=== PATIENT | female | born 1950 | race Caucasian/White ===

== ENCOUNTER → 2016-08-19 | Outpatient (CLI) | payer OTHER, BC ==
[~2016-08-19] MED LIST: ACETAMINOPHEN325 M1 PO; ALIGN4 MG PO; AMBEREN; CARBIDOPA-LEVO1 EAC3 PO; CIPROFLOXACIN500 M1 PO; CLONAZEPAM; CLONAZEPAM 1 MG1 M1 PO; CYMBALTA30 MG PO; CYMBALTA60 MG PO; EXELON1 EAC1 TD; FISHOIL; FLAGYL500 MG PO; HYDROCODONE-AP1 EAC6 PO; MIRAPEX0.5 MG PO; MULTIVITAMINS PO; NORVASC10 MG PO; OS-CAL 500+D C1 EACH; PRILOSEC 20 MG20 MG PO; PRILOSEC40 MG PO; SINEMET 25-1001 EAC1 PO; SYNTHROID75 MCG PO; TIROSINT75 MCG PO; VITAMIN D1000 UNI1 PO
== END ==
LOC: RAD 07:37
DX: Z12.31 Encounter for screening mammogram for malignant neoplasm of breast (principal)

== ENCOUNTER → 2017-08-31 | Outpatient (CLI) | payer OTHER, BC | LOC: RAD 01:31 | DX: Z12.31 Encounter for screening mammogram for malignant neoplasm of breast (principal) ==

== ENCOUNTER 2017-12-09 18:21 | Inpatient (IN) | payer OTHER, BC ==
[~2017-12-09] VITALS: Ht 165.1 cm; Wt 42.8 kg
--- NOTE | ~2017-12-09 | 2DMMODE ---
[facility] [place] [address] 2 D/M-MODE ECHOCARDIOGRAM Name: LALITA PORTILLO Room #: 460-P ADM IN ..#: [id number] Admission: 12/09/17 Attend Phys: Barrington Deluca MD Discharge: Date of : 52 Date of Service: 12/11/17 1123 Report #: [id number] THIS REPORT FOR: //name// APPROVED REPORT Study performed: 12/11/2017 08:25:42 EXAM: Comprehensive 2D, Doppler, and color-flow Echocardiogram Patient Location: Bedside Room #: [facility] Status: routine BSA: 1.40 HR: 77 bpm BP: 150/94 mmHg Rhythm: NSR Other Information Study Quality: Fair Risk Factors: Cardiac Risk Factors: HTN Indications Syncope 2D Dimensions RVDd: 34.25 mm IVSd: 10.33 (7-11mm) LVDd: 37.41 mm PWd: 11.41 (7-11mm) Ascending Ao: 27.13 (22-36mm) LVDs: 27.39 (25-40mm) Aortic Root: 31.37 mm IVC: 16.00 mm Volumes Left Atrial Volume (Systole) Single Plane 4CH: 14.39 mL Single Plane 2CH: 33.58 mL LA ESV Index: 19.80 mL/m2 Aortic Valve AoV Peak Eduard.: 1.30 m/s AO Peak Gr.: 6.78 mmHg LVOT Max P.79 mmHg LVOT Max V: 0.97 m/s Mitral Valve E/A Ratio: 1.1 [facility] [address] [place] [address] 2 D/M-MODE ECHOCARDIOGRAM Name: LALITA PORTILLO Room #: 460-P [facility]#: [id number] Admission: 12/09/17 Attend Phys: Barrington Deluca MD Discharge: Date of : 52 Date of Service: 12/11/17 1123 Report #: [id number] MV Decel. Time: 203.01 ms MV E Max Eduard.: 0.78 m/s MV A Eduard.: 0.71 m/s MV PHT: 58.87 ms IVRT: 110.73 ms Pulmonary Valve PV Peak Eduard.: 0.75 m/s PV Peak Gr.: 2.23 mmHg Pulmonary Vein P Vein S: 0.85 m/s P Vein A: 0.31 m/s P Vein D: 0.41 m/s P Vein A Dur.: 162.6 msec P Vein S/D Ratio: 2.07 Tricuspid Valve TR Peak Eduard.: 1.90 m/s RAP Estimate: 10.00 mmHg TR Peak Gr.: 14.46 mmHg PA Pressure: 25.00 mmHg Left Ventricle The left ventricle is normal size. There is normal left ventricular wall thickness. The left ventricular systolic function is normal. The left ventricular ejection fraction is within the normal range. LVEF is 55%. Right Ventricle The right ventricle is normal size. The right ventricular systolic function is normal. Atria The left atrium size is normal. Right atrium is mildly dilated. Aortic Valve The aortic valve is normal in structure. No aortic regurgitation is present. There is no aortic valvular stenosis. Mitral Valve The mitral valve is normal in structure. Trace mitral regurgitation. No evidence of mitral valve stenosis. Tricuspid Valve The tricuspid valve is normal in structure. Trace tricuspid regurgitation. Estimated PAP of 25 mmHg. Pulmonic Valve [facility] [address] [place] [address] 2 D/M-MODE ECHOCARDIOGRAM Name: LALITA PORTILLO Room #: 460-P [facility] IN ..#: [id number] Admission: 12/09/17 Attend Phys: Barrington Deluca MD Discharge: Date of : 52 Date of Service: 12/11/17 1123 Report #: [id number] Pulmonic valve is not well visualized. Trace pulmonic regurgitation. Great Vessels The aortic root is normal in size. The ascending aorta is normal in size. IVC is normal in size and collapses <50% with inspiration. Pericardium Small posterior pericardial effusion. <Conclusion> The left ventricle is normal size. LVEF is 55%. The right ventricle is normal size. Right atrium is mildly dilated. The aortic valve is normal in structure. Trace mitral regurgitation. Trace tricuspid regurgitation. Estimated PAP of 25 mmHg. The aortic root is normal in size. Small posterior pericardial effusion. <ELECTRONICALLY SIGNED> By: Denis Ndiaye MD, FACC 12/11/17 112 22 22 Denis Ndiaye MD, FACC /INF
--- NOTE | ~2017-12-09 | HC ---
[facility] [place] [address] CONSULTATION Name: LALITA PORTILLO Room #: 460-P [facility] IN M.R.#: [id number] Admission: 12/09/17 Attend Phys: Barrington Deluca MD Discharge: 12/15/17 Date of : 52 Report #: [id number] THIS REPORT FOR: //name// CC: [facility] physician/PCP Barrington Deluca DATE OF SERVICE: 12/11/2017 NEUROLOGY CONSULTATION HISTORY OF PRESENT ILLNESS: The patient is a 67-year-old female. The neurology service is asked to see in consultation for Parkinson's disease and dementia. Apparently, the patient came to the Emergency Room 2 days ago after having 2 syncopal episodes. The patient has a 9-year history of Parkinson's disease and is followed by Dr. Joshua at [facility]. Dr. Joshua is a movement disorder specialist. With one of these falls, she fractured her left humerus. She was seen at [facility] and was discharged. Apparently, the patient has a history of orthostatic hypotension, but Dr. Joshua had elected not to put the patient on any medication to keep her blood pressure up because of the concern for supine hypertension. According to the patient's , the patient spends quite a bit of time in a supine position and is not up and about. For the most part, the patient is doing well with her current medications. She takes Sinemet 4 times a day and is on a patch for her memory. She is pleased with Dr. Joshua, but sometimes, the visits are very brief and he has learned to take a list with him so he makes sure that he gets all his questions answered. PAST MEDICAL HISTORY: Parkinson's disease, orthostatic hypotension, dementia. PAST SURGICAL HISTORY: Unremarkable. MEDICATIONS: Multivitamin, memantine 10 mg b.i.d., trazodone 25 mg at bedtime, gabapentin 300 mg at bedtime, Sinemet 25/100 q.i.d., vitamin D 2000 units daily, folic acid daily, calcium with vitamin D at bedtime, magnesium 400 mg daily, hydrocodone p.r.n., Cymbalta 60 mg b.i.d., levothyroxine 75 mcg daily, Exelon patch 13.3 mg daily. ALLERGIES: PENICILLIN. PHYSICAL EXAMINATION: VITAL SIGNS: Temperature 36.7, pulse rate 76, respiratory rate 16, blood pressure 137/80, bedside pulse oximetry 98% on room air. NEUROLOGIC: Cranial nerves 2-12 are grossly intact. Motor exam demonstrates mild cogwheel rigidity in the right upper extremity. The left upper extremity could not be examined, the patient has a left humeral fracture. No tremor was seen. [place] [address] CONSULTATION Name: LALITA PORTILLO Room #: 460-P DIS IN M.R.#: [id number] Admission: 12/09/17 Attend Phys: Barrington Deluca MD Discharge: 12/15/17 Date of : 52 Report #: [id number] LABORATORY DATA: White blood cell count 7.9, hemoglobin 8.4, hematocrit 25, platelet count 155,000. Urinalysis: Urine pH 8.5, trace protein, trace ketones, trace blood, nitrite positive, 3+ leukocyte esterase. Chemistry: Sodium 144, potassium 4.1, chloride 133, carbon dioxide 27, BUN 19, creatinine 1.2, glucose 103. Liver functions normal. TSH 0.5. IMAGING STUDIES: CT scan of the head demonstrates mild cerebral volume loss. IMPRESSION: This patient has stable Parkinson's disease. She has dementia. This dementia could be compounded by the underlying urinary tract infection. At this point, I explained to the that she is seeing one of the very best movement disorder specialists that she can see and I would continue her medications as prescribed by Dr. Joshua. This includes Sinemet and the 2 medications for her memory, which are at their maximum dose. This includes the rivastigmine patch, which is at 13.3 mg and memantine, which is at 10 mg twice a day. Beyond this, I have no further recommendations other than therapy, which may be beneficial for the patient. I thank you for your kind referral of this patient. <ELECTRONICALLY SIGNED> By: Alix Diaz DO 12/23/17 1154 1135 [id number] Alix Diaz DO /nt
--- NOTE | ~2017-12-09 | EKG ---
[address] [address] ELECTROCARDIOGRAM REPORT Name: LI PORTILLOY Ekta Room #: 460-P ADM IN .R.#: [id number] Admission: 12/09/17 Attend Phys: Raudel Dempsey MD Discharge: Date of : 52 Report #: [id number] THIS REPORT FOR: //name// [facility] ED Test Date: 2017-12-09 Test Time: 18:30:26 Pat Name: LALITA PORTILLO Department: Room: [facility] Gender: F [employer] [place]: PARKER : 1950 Requested By: Les Braun Order Number: [id number] MD: Brian Ward Measurements Intervals [place] Rate: 72 P: 76 OR: 144 QRS: 18 QRSD: 105 T: 68 QT: 434 QTc: 476 Interpretive Statements Sinus rhythm No significant abnormality Compared to ECG 08/15/2014 12:47:29 No significant change was found Electronically Signed On 12-10-2017 8:06:54 CDT by Brian Ward [email or web address] <ELECTRONICALLY SIGNED> By: Brian Ward MD, [facility] 12/10/17 0806 29 29 Brian Ward MD, [facility] /EPI
[2017-12-09 18:22] VITALS: BP 141/78
[2017-12-09] MEDS ORDERED: NAMENDA 10 MG T10 MG PO (18:26)
[2017-12-09] MEDS ORDERED: TRAZODONE HCL50 MG PO (18:26)
[2017-12-09] MEDS ORDERED: NEURONTIN 300300 M1 PO (18:27)
[2017-12-09 19:51] LABS: BASOPHILS 0.2 % (0.0-2.0); EOSINOPHILS 0.1 % (0.0-3.0); HEMOGLOBIN 10.4 gm/dL (12.0-15.0); LYMPHOCYTES 7.1 % (24.0-44.0); MCH 30.9 pg (26.0-34.0); MCHC 33.5 g/dL (28.0-37.0); MCV 92.2 fL (80.0-100.0); MONOCYTES 5.1 % (1.0-8.0); PLATELET COUNT 210 thou/uL (150-400); POLYS 87.5 % (36.0-66.0); RBC 3.36 mil/uL (4.20-5.00); WBC 12.6 thou/uL (4.0-11.0)
[2017-12-09 20:01] LABS: ANION GAP 6 mmol/L (7-16); BUN 25 mg/dL (7-18); CALCIUM 10.5 mg/dL (8.5-10.1); CHLORIDE 103 mmol/L (98-107); CO2 32 mmol/L (21-32); CREATININE 1.5 mg/dL (0.6-1.0); GLUCOSE 163 mg/dL (74-106); POTASSIUM 3.9 mmol/L (3.5-5.1); SODIUM 141 mmol/L (136-145)
[2017-12-09 20:11] LABS: SGOT 20 U/L (15-37); SGPT 8 U/L (30-65); TOTAL BILIRUBIN 0.6 mg/dL (<0.1-1.0); TOTAL PROTEIN 7.1 g/dL (6.4-8.2); TROPONIN-I <0.06 ng/mL (<0.06)
[2017-12-09 20:35] LABS: URINE BILIRUBIN NEGATIVE (Negative); URINE BLOOD TRACE (Negative); URINE COLOR YELLOW; URINE GLUCOSE-RANDOM* NEGATIVE (Negative); URINE KETONES TRACE (Negative); URINE PROTEIN (DIPSTICK) TRACE (Negative); URINE SPECIFIC GRAVITY 1.015 (1.005-1.035); URINE UROBILINOGEN 0.2 E.U./dl (0.2-1.0)
[2017-12-09 20:36] LABS: URINE CLARITY CLOUDY; URINE LEUKOCYTES-REFLEX 3+ (Negative); URINE NITRITE-REFLEX POSITIVE (Negative)
[2017-12-09 20:43] LABS: BACTERIA-REFLEX >30 Many /HPF (None Seen); CASTS None Seen /LPF (None Seen); CRYSTALS None Seen /LPF (None Seen); SQUAMOUS 0-3 Few /LPF (0-3); URINE RBC 0-2 Rare /HPF (0-2)
[2017-12-09 20:50] VITALS: BP 135/87
[2017-12-09] MEDS ORDERED: FOLBIC TABLET1 TAB PO (20:55)
[2017-12-09] MEDS ORDERED: CALCIUM 600 +1 EAC1 PO (20:56)
[2017-12-09] MEDS ORDERED: MAGOX 400400 MG PO (20:56)
[2017-12-09] MEDS ORDERED: NORCO 5-325 TA1 EACH PO (20:58)
[2017-12-09 21:50] VITALS: BP 137/77
[2017-12-10 03:06] VITALS: BP 137/77
[2017-12-10 04:15] LABS: HEMATOCRIT 26.9 % (37.0-47.0); HEMOGLOBIN 9.2 gm/dL (12.0-15.0); MCH 31.3 pg (26.0-34.0); MCHC 34.1 g/dL (28.0-37.0); MCV 91.6 fL (80.0-100.0); RBC 2.94 mil/uL (4.20-5.00); RDW 12.9 % (10.5-14.5); WBC 12.9 thou/uL (4.0-11.0)
[2017-12-10 04:26] LABS: CALCIUM 9.4 mg/dL (8.5-10.1); CREATININE 1.5 mg/dL (0.6-1.0); MAGNESIUM 1.8 mg/dL (1.8-2.4); POTASSIUM 3.2 mmol/L (3.5-5.1)
[2017-12-10 07:48] VITALS: BP 145/93
[2017-12-10 20:05] VITALS: BP 150/94
[2017-12-10 23:24] VITALS: BP 150/94
[2017-12-11 00:06] LABS: GLYCOHEMOGLOBIN (HGB A1C) 5.2 % (4.8-5.6)
[2017-12-11 07:25] LABS: ABSOLUTE NEUTROPHILS 4.9 thou/uL (1.4-8.2); BASOPHILS 0.3 % (0.0-2.0); EOSINOPHILS 0.5 % (0.0-3.0); HEMOGLOBIN 8.4 gm/dL (12.0-15.0); LYMPHOCYTES 25.1 % (24.0-44.0); MCH 31.2 pg (26.0-34.0); MCHC 33.6 g/dL (28.0-37.0); MCV 92.9 fL (80.0-100.0); MONOCYTES 11.5 % (1.0-8.0); PLATELET COUNT 155 thou/uL (150-400); POLYS 62.6 % (36.0-66.0); RBC 2.69 mil/uL (4.20-5.00); RDW 13.4 % (10.5-14.5); WBC 7.9 thou/uL (4.0-11.0)
[2017-12-11 07:35] LABS: ALBUMIN 3.1 g/dL (3.4-5.0); CALCIUM 9.1 mg/dL (8.5-10.1); CREATININE 1.2 mg/dL (0.6-1.0); POTASSIUM 4.1 mmol/L (3.5-5.1); TOTAL BILIRUBIN 0.3 mg/dL (<0.1-1.0); TOTAL PROTEIN 5.8 g/dL (6.4-8.2)
[2017-12-11 07:48] VITALS: BP 137/80
[2017-12-11 19:40] VITALS: BP 150/89
[2017-12-12 05:57] LABS: ABSOLUTE NEUTROPHILS 5.3 thou/uL (1.4-8.2); BASOPHILS 0.5 % (0.0-2.0); EOSINOPHILS 1.3 % (0.0-3.0); HEMATOCRIT 26.2 % (37.0-47.0); HEMOGLOBIN 9.1 gm/dL (12.0-15.0); LYMPHOCYTES 24.6 % (24.0-44.0); MCH 32.3 pg (26.0-34.0); MCHC 34.8 g/dL (28.0-37.0); MCV 92.9 fL (80.0-100.0); MONOCYTES 10.7 % (1.0-8.0); PLATELET COUNT 151 thou/uL (150-400); POLYS 62.9 % (36.0-66.0); RBC 2.82 mil/uL (4.20-5.00); WBC 8.5 thou/uL (4.0-11.0)
[2017-12-12 06:26] LABS: CALCIUM 8.6 mg/dL (8.5-10.1); CREATININE 0.9 mg/dL (0.6-1.0); POTASSIUM 4.2 mmol/L (3.5-5.1)
[2017-12-12 07:59] VITALS: BP 140/91
[2017-12-12 19:48] VITALS: BP 141/78
[2017-12-13 14:30] VITALS: BP 113/82
[2017-12-13 19:20] VITALS: BP 130/80
[2017-12-14 08:44] VITALS: BP 163/75
[2017-12-14 19:15] VITALS: BP 130/96
[2017-12-15 07:15] VITALS: BP 151/98
== END 2017-12-15 11:35 | DRG 56 ==
LOC: ER 18:21 → 4W 20:35 → EROBS 20:35 → 4W 21:31
PROVIDERS: Emergency Medicine; Hospitalist; Nurse Practitioner Acute Care
DX: G20 Parkinson's disease (principal); E43 Unspecified severe protein-calorie malnutrition; S42.202A Unspecified fracture of upper end of left humerus, initial encounter for closed fracture; N39.0 Urinary tract infection, site not specified; G93.40 Encephalopathy, unspecified; Z68.1 Body mass index [BMI] 19.9 or less, adult; Z53.29 Procedure and treatment not carried out because of patient's decision for other reasons; F02.80 Dementia in other diseases classified elsewhere, unspecified severity, without behavioral disturbance, psychotic disturbance, mood disturbance, and anxiety; F41.9 Anxiety disorder, unspecified; I10 Essential (primary) hypertension; F32.9 Major depressive disorder, single episode, unspecified; M79.18 Myalgia, other site; W18.39XA Other fall on same level, initial encounter; F80.82 Social pragmatic communication disorder; I95.9 Hypotension, unspecified; R41.0 Disorientation, unspecified; E03.9 Hypothyroidism, unspecified; R33.9 Retention of urine, unspecified; D64.9 Anemia, unspecified; Z79.899 Other long term (current) drug therapy; Z88.0 Allergy status to penicillin; Y93.89 Activity, other specified; Y92.89 Other specified places as the place of occurrence of the external cause; Y99.8 Other external cause status
CPT/HCPCS: 10040

== ENCOUNTER 2018-01-09 18:54 | Emergency (ER) | payer OTHER, BC ==
[~2018-01-09] VITALS: Ht 167.6 cm; Wt 59.0 kg
--- NOTE | ~2018-01-09 | EKG ---
[address] [place] [address] ELECTROCARDIOGRAM REPORT Name: LALITA PORTILLO Room #: DEP [facility]#: [id number] Admission: 01/09/18 Attend Phys: Discharge: 01/09/18 Date of : 52 Report #: [id number] THIS REPORT FOR: //name// [facility] ED Test Date: 2018-01-09 Test Time: 19:31:26 Pat Name: LALITA PORTILLO Department: Room: Gender: F Destination Coordinator: JUAN ANTONIO : 1950 Requested By: Talat Dowling Order Number: [id number] MD: Cabrera Regalado Measurements Intervals [place] Rate: 96 P: 57 [place]: 144 QRS: 9 QRSD: 93 T: 42 QT: 378 QTc: 478 Interpretive Statements Sinus rhythm Low voltage, precordial leads Nonspecific T-wave abnormalities Compared to ECG 12/09/2017 18:30:26 Low QRS voltage now present T-wave abnormality now present Electronically Signed On 01-10-2018 10:22:20 MULTILITH OPERATOR by Cabrera Regalado [email or web address] <ELECTRONICALLY SIGNED> By: Cabrera Regalado MD 01/10/18 1022 30 30 Cabrera Regalado MD /EPI
[~2018-01-09 18:54] MED LIST changes: +CALCIUM 600 +1 EAC1 PO; +FOLBIC TABLET1 TAB PO; +MAGOX 400400 MG PO; +NAMENDA 10 MG T10 MG PO; +NEURONTIN 300300 M1 PO; +NORCO 5-325 TA1 EACH PO; +TRAZODONE HCL50 MG PO
[2018-01-09 19:37] LABS: ABSOLUTE NEUTROPHILS 9.5 thou/uL (1.4-8.2); BASOPHILS 0.3 % (0.0-2.0); HEMOGLOBIN 9.8 gm/dL (12.0-15.0); LYMPHOCYTES 8.7 % (24.0-44.0); MCH 31.3 pg (26.0-34.0); MCHC 33.9 g/dL (28.0-37.0); MCV 92.3 fL (80.0-100.0); MONOCYTES 7.1 % (1.0-8.0); PLATELET COUNT 203 thou/uL (150-400); POLYS 83.9 % (36.0-66.0); RBC 3.14 mil/uL (4.20-5.00); RDW 13.5 % (10.5-14.5); WBC 11.3 thou/uL (4.0-11.0)
[2018-01-09 19:44] LABS: URINE BILIRUBIN NEGATIVE (Negative); URINE BLOOD NEGATIVE (Negative); URINE CLARITY CLEAR; URINE COLOR YELLOW; URINE GLUCOSE-RANDOM* NEGATIVE (Negative); URINE KETONES NEGATIVE (Negative); URINE LEUKOCYTES-REFLEX NEGATIVE (Negative); URINE NITRITE-REFLEX NEGATIVE (Negative); URINE PROTEIN (DIPSTICK) NEGATIVE (Negative); URINE UROBILINOGEN 0.2 E.U./dl (0.2-1.0)
[2018-01-09 19:45] LABS: ANION GAP 11 mmol/L (7-16); BUN 19 mg/dL (7-18); CALCIUM 9.4 mg/dL (8.5-10.1); CHLORIDE 104 mmol/L (98-107); CO2 29 mmol/L (21-32); CREATININE 1.3 mg/dL (0.6-1.0); GLUCOSE 147 mg/dL (74-106); POTASSIUM 3.5 mmol/L (3.5-5.1); SODIUM 144 mmol/L (136-145)
[2018-01-09 19:54] LABS: TROPONIN-I <0.06 ng/mL (<0.06)
[2018-01-09 22:58] VITALS: BP 115/68
== END 2018-01-09 23:11 | disposition home or self-care (01) ==
LOC: ER 18:54
PROVIDERS: Emergency Medicine
DX: S01.01XA Laceration without foreign body of scalp, initial encounter (principal); I10 Essential (primary) hypertension; F32.9 Major depressive disorder, single episode, unspecified; F41.9 Anxiety disorder, unspecified; E03.9 Hypothyroidism, unspecified; G31.83 Neurocognitive disorder with Lewy bodies; F02.80 Dementia in other diseases classified elsewhere, unspecified severity, without behavioral disturbance, psychotic disturbance, mood disturbance, and anxiety; Z88.0 Allergy status to penicillin; W19.XXXA Unspecified fall, initial encounter; Y92.129 Unspecified place in nursing home as the place of occurrence of the external cause; Y93.89 Activity, other specified; Y99.8 Other external cause status